=== PATIENT | male | born 1945 ===

== ENCOUNTER → 2017-07-21 06:32 | Outpatient (CLI) | payer OTHER ==
[~2017-07-21 06:32] MED LIST: HYDROXYZINE HCL25 GM; HYZAAR 100-12.1 EACH; ORAPRED ODT10 MG; PLAVIX75 MG; SYNTHROID50 MCG; VITAMINA D3
== END | disposition home or self-care (01) ==
LOC: LAB 06:32
DX: C20 Malignant neoplasm of rectum (principal); K92.1 Melena; R59.0 Localized enlarged lymph nodes; Z85.048 Personal history of other malignant neoplasm of rectum, rectosigmoid junction, and anus

== ENCOUNTER → 2017-07-21 06:36 | Outpatient (CLI) | payer OTHER | END | disposition home or self-care (01) | LOC: RAD 06:36 | DX: C20 Malignant neoplasm of rectum (principal); Z85.048 Personal history of other malignant neoplasm of rectum, rectosigmoid junction, and anus; K92.1 Melena; R59.0 Localized enlarged lymph nodes ==

== ENCOUNTER 2017-07-26 07:53 | Day surgery (SDC) | payer OTHER | END 2017-07-26 14:45 | disposition home or self-care (01) | LOC: CIR.AMB 07:53 | DX: C20 Malignant neoplasm of rectum (principal) | CPT/HCPCS: 36561; C1751 ==

== ENCOUNTER 2017-12-13 09:00 | Inpatient (IN) | payer OTHER ==
[~2017-12-13] VITALS: Ht 162.6 cm; Wt 86.2 kg
[2017-12-13] MEDS ORDERED: VISTARIL25 MG PO (10:20)
[2017-12-13] MEDS ORDERED: PRAVASTATIN SOD40 MG PO (10:21)
[2017-12-13] MEDS ORDERED: TAMS0.4C PO (10:21)
[2017-12-13] MEDS ORDERED: HYZAAR 100-12.1 EACH PO (10:22)
[2017-12-24] MEDS ORDERED: TAMS0.4C PO (12:44)
[2017-12-24] MEDS ORDERED: PERCOCET 5-3251 EACH PO (12:44)
== END 2017-12-24 15:15 | disposition home or self-care (01) | DRG 330 ==
LOC: EDSTATUS 09:00 → ADM 09:00 → SURH 12-20 06:10 → O/R 12-20 06:10 → SURH 12-20 15:52
PROVIDERS: Colon & Rectal Surgery
PROC: 0DTN4ZZ Resection of Sigmoid Colon, Percutaneous Endoscopic Approach (ICD-10-PCS; 2017-12-20)
PROC: 0DTQ4ZZ Resection of Anus, Percutaneous Endoscopic Approach (ICD-10-PCS; 2017-12-20)
PROC: 07TC4ZZ Resection of Pelvis Lymphatic, Percutaneous Endoscopic Approach (ICD-10-PCS; 2017-12-20)
PROC: 0DTP4ZZ Resection of Rectum, Percutaneous Endoscopic Approach (ICD-10-PCS; principal; 2017-12-20 10:30)
DX: C20 Malignant neoplasm of rectum (principal); G45.8 Other transient cerebral ischemic attacks and related syndromes; Z85.048 Personal history of other malignant neoplasm of rectum, rectosigmoid junction, and anus; I10 Essential (primary) hypertension; E78.00 Pure hypercholesterolemia, unspecified; E03.8 Other specified hypothyroidism; G47.33 Obstructive sleep apnea (adult) (pediatric); E66.09 Other obesity due to excess calories

== ENCOUNTER 2018-11-10 07:05 | Day surgery (SDC) | payer OTHER ==
[~2018-11-10 07:05] MED LIST changes: +HYZAAR 100-12.1 EACH PO; +PERCOCET 5-3251 EACH PO; +PRAVASTATIN SOD40 MG PO; +TAMS0.4C PO; +VISTARIL25 MG PO
== END 2018-11-10 12:15 | disposition home or self-care (01) ==
LOC: AMB-ENDOS 07:05
DX: K63.5 Polyp of colon (principal)

== ENCOUNTER 2020-02-28 20:10 | Emergency (ER) | payer OTHER ==
[~2020-02-28] VITALS: Ht 162.6 cm; Wt 94.3 kg
[2020-02-28] MEDS ORDERED: XARELTO20 MG (21:04)
== END 2020-02-28 22:56 | disposition home or self-care (01) ==
LOC: ER 20:10 → EMR PED 20:10 → ER 21:22
DX: U07.1 COVID-19 (principal); B34.9 Viral infection, unspecified

== ENCOUNTER 2021-01-20 06:22 | Emergency (ER) | payer OTHER ==
[~2021-01-20] VITALS: Ht 157.5 cm; Wt 93.0 kg
[~2021-01-20 06:22] MED LIST changes: +XARELTO20 MG
[2021-01-20] MEDS ORDERED: INTESTINEX680 M1 PO (13:46)
[2021-01-20] MEDS ORDERED: PEPCID AC20 MG PO (13:46)
== END 2021-01-20 13:53 | disposition home or self-care (01) ==
LOC: EMR PED 06:22 → ER 06:24
DX: B34.9 Viral infection, unspecified (principal); R19.7 Diarrhea, unspecified

== ENCOUNTER 2021-02-20 07:10 | Day surgery (SDC) | payer OTHER ==
[~2021-02-20 07:10] MED LIST changes: +INTESTINEX680 M1 PO; +PEPCID AC20 MG PO
== END 2021-02-20 11:15 | disposition home or self-care (01) ==
LOC: AMB-ENDOS 07:10
PROVIDERS: ATTEND Colon & Rectal Surgery
DX: D12.0 Benign neoplasm of cecum (principal); Z20.822 Contact with and (suspected) exposure to COVID-19